=== PATIENT | male | born 1965 | race Caucasian/White ===

== ENCOUNTER → 2016-06-11 | Outpatient (CLI) | payer BC ==
[2016-06-11 11:11] LABS: ALT 49 U/L (21-72); AST 28 U/L (17-59); Cholesterol 160 mg/dL (<200); HDL Cholesterol 47 mg/dL (40-60); Triglycerides 54 mg/dL (<150)
== END | disposition home or self-care (01) ==
LOC: LABWHC1 08:51
PROVIDERS: ATTEND Internal Medicine Interventional Cardiology
DX: E78.2 Mixed hyperlipidemia (principal)
CPT/HCPCS: 36415; 80061; 84450; 84460

== ENCOUNTER → 2016-06-11 | Outpatient (CLI) | payer BC ==
[2016-06-11 10:56] LABS: Basophils % (A) 1 %; CH 32.7; CHCM 33.6; Eosinophils # (A) 0.1 k/uL (0-0.7); Eosinophils % (A) 2 %; HCT 43.8 % (39.0-53.0); HDW 2.58; HGB 14.4 gm/dL (13.0-17.5); Luc # (Auto) 0.09; Luc % (Auto) 2; Lymphocytes % (A) 23 %; MCH 32.2 pg (25.0-35.0); MCHC 32.9 g/dL (31.0-37.0); MCV 97.7 fL (80.0-100.0); Mean Platelet Volume 6.3; Monocytes # (A) 0.3 k/uL (0-1.0); Monocytes % (A) 7 %; Neutrophils # (A) 2.7 k/uL (1.3-7.7); Neutrophils % (A) 66 %; RBC 4.49 m/uL (4.30-5.90); RDW 12.6 % (11.5-15.5); WBC 4.1 k/uL (3.8-10.6); WBC (Perox) 4.29
[2016-06-11 11:16] LABS: Potassium 4.8 mmol/L (3.5-5.1)
== END | disposition home or self-care (01) ==
LOC: LABPAT 08:49
PROVIDERS: ATTEND Orthopaedic Surgery
DX: Z01.818 Encounter for other preprocedural examination (principal); I48.91 Unspecified atrial fibrillation
CPT/HCPCS: 80051; 85025

== ENCOUNTER 2016-06-22 06:39 | Day surgery (SDC) | payer BC ==
[2016-06-14 11:49] VITALS: BMI 29.1
--- NOTE | 2016-06-21 14:54 | HP ---
DATE OF ADMISSION: 06/22/2016 Jairon Davis is a 51-year-old patient seen with progressive right shoulder pain. After having options regarding treatment discussed, he elected to proceed with right shoulder arthroscopy. Consent was obtained. His past medical history is noncontributory. Past surgical history is left shoulder arthroscopy, hand surgery. DAILY MEDICATIONS: None reported. SOCIAL HISTORY: Patient denies tobacco use. Physical evaluation of the right shoulder: Flexion is 150 degrees, abduction is 140 degrees, external rotation is 50 degrees with some discomfort and pain. Tenderness along the anterolateral acromion and rotator cuff insertion. Impingement positive at 90 degrees. Distal neurovascular exam is intact. Right shoulder radiographs revealed a type 2 anterior acromion, acromioclavicular joint osteoarthritis, and cystic changes of the greater tuberosity. An MRI of the right shoulder revealed impingement and rotator cuff tear. IMPRESSION: Right shoulder impingement with rotator cuff tear and acromioclavicular joint osteoarthritis. PLAN: Right shoulder arthroscopy with subacromial decompression, probable arthroscopic rotator cuff repair. Sammy procedure and debridement.
[~2016-06-22 06:39] MED LIST: DEXAMETHASONE SOD PHOSPHATE 10 MG/ML 1 ML VIAL IV ONE; HYDROmorphone 1 MG/ML 1 ML SYRINGE IVP PRN; LACTATED RINGERS 1,000 ML IV SCH; LIDOCAINE 1% 20 ML VIAL (10MG/ML) FOR IV START INTRADERMA PRN; MIDAZOLAM 2 MG/2 ML VIAL IV PRN; ONDANSETRON 4 MG/2 ML VIAL IVP ONE; SCOPOLAMINE 1.5MG/72HR PATCH TRANSDERM ONE; ceFAZolin 2 GM in SODIUM CHLORIDE 0.9% 100 ML IVPB ONE
[2016-06-22] MEDS ORDERED: MIDAZOLAM 2 MG/2 ML VIAL IVP ONE (07:32)
[2016-06-22] MEDS ORDERED: fentaNYL (PF) 50 MCG/ML 2 ML AMP IV ONE (07:35)
[2016-06-22] MEDS ORDERED: fentaNYL (PF) 50 MCG/ML 2 ML AMP ONE (08:03)
[2016-06-22] MEDS ORDERED: KETOROLAC 30 MG/ML 1 ML VIAL ONE (08:03)
[2016-06-22] MEDS ORDERED: ROPIVACAINE 5 MG/ML 30 ML VIAL ONE (08:03)
[2016-06-22] MEDS ORDERED: PROPOFOL 10 MG/ML 20 ML VIAL IV ONE (08:03)
[2016-06-22] MEDS ORDERED: LIDOCAINE 2%-EPI 1:100,000 20 ML VIAL ONE (08:03)
[2016-06-22] MEDS ORDERED: LIDOCAINE 1% INJ 10MG/ML (20 ML MDV) ONE (08:03)
[2016-06-22] MEDS ORDERED: MIDAZOLAM 2 MG/2 ML VIAL ONE (08:03)
[2016-06-22] MEDS ORDERED: SUCCINYLCHOLINE CHLORIDE 100 MG/5 ML SYR IV ONE (08:03)
[2016-06-22] MEDS ORDERED: LACTATED RINGERS 1,000 ML IV ONE (08:30)
[2016-06-22 10:08] VITALS: TEMP 97.3
--- NOTE | 2016-06-22 10:19 | P.OP ---
Date of Procedure: 06/22/16 Preoperative Diagnosis: Right shoulder impingement Postoperative Diagnosis: 1. Right shoulder rotator cuff tear 2. Right shoulder impingement 3. Right shoulder acromioclavicular joint osteoarthritis 4. Right shoulder partial long head biceps tendon tear 5. Right shoulder superficial labral tear Procedure(s) Performed: 1. Right shoulder arthroscopic rotator cuff repair 2. Right shoulder arthroscopic subacromial decompression 3. Right shoulder arthroscopic Sammy procedure 4. Right shoulder arthroscopic biceps tenotomy 5. Right shoulder arthroscopic debridement labral tear Implants: 4-valeris anchors Anesthesia: GETA, regional (Shoulder block) Surgeon: Javy Aldana Forgesmith #1: Kavon Shen Estimated Blood Loss (ml): 10 Pathology: none sent Condition: stable Disposition: PACU Indications for Procedure: 51-year-old patient seen with right shoulder pain. After having treatment options discussed, he elected to proceed with arthroscopy. Operative Findings: See description of procedure Description of Procedure: Patient underwent a shoulder block by department of anesthesia. The patient was then taken to the operative suite. The patient underwent a general anesthetic by the department of anesthesia. The patient was placed into a lateral position and secured. There was appropriate padding of the bony prominence. Right shoulder was then prepped and draped in normal sterile orthopedic fashion. We placed the extremity in 10 pounds of longitudinal traction. A posterior incision was now made for a posterior working portal site. The trocar and cannula were inserted into the glenohumeral joint. Arthroscopy was initiated. Spinal needle was now inserted anteriorly, to ascertain the anterior working portal site. An incision was now made in that area, a trocar was inserted followed by a probe. There was partial tearing long head biceps tendon was some hyperemia present. Superficial tearing of the anterior labrum present. There was grade 1 chondromalacia of the glenoid. The superior, posterior and inferior labrum were found to be intact. I performed an arthroscopic biceps tenotomy. I debrided the superficial labral tear down to stable tissue. The residual labrum was probed and found to be stable. Instruments now removed from glenohumeral joint. Utilizing the posterior working portal site, the trocar and cannula were inserted into the subacromial space. Arthroscopy initiated. I made an incision 2 fingerbreadths lateral to the acromion. I introduced my trocar followed by my ArthroCare ablator. I now began ablating thick subacromial bursal tissue, which exposed the undersurface of the anterior acromion. This was diminished subacromial space. There was a very prominent anterior acromion. A motorized bur was introduced and a subacromial decompression was performed. I also excised some osteophytes off the inferior aspect of the distal clavicle. The AC joint was visualized and noted to be fairly arthritic. Our motorized bur was introduced in the anterior portal site and a Sammy procedure was performed without difficulty, decompressing the AC joint nicely. I turned my attention to the rotator cuff. There was a 2-2.5 cm tear of the distal supraspinatus. I debrided the margins down to stable tissue. I abraded the footprint with a motorized bur. I created an assessory portal site off the lateral acromion. I introduced 2 medial row anchors with 2 sutures each. I now passed all 8 limbs of suture through good bites of rotator cuff tendon. I crisscrossed the sutures and inserted 2 lateral anchors. That compresses tendon along the footprint very nicely. Residual suture limbs were clip. The repair was probed and found to be stable. I injected 1 mL of Allogen into the footprint repair site without difficulty. Instruments now removed from the portal sites. All portal sites were approximated with nylon suture. Sterile dressings were applied followed by a shoulder immobilizer. Kavon BOWSER assisted with the procedure. The patient was awakened, transferred to a bed, and taken to recovery in stable condition.
[2016-06-22 11:26] VITALS: BP 130/79; PULSE 53; RESP 18
== END 2016-06-22 12:34 | disposition home or self-care (01) ==
LOC: OR 06:39
PROVIDERS: ATTEND Orthopaedic Surgery
DX: M75.101 Unspecified rotator cuff tear or rupture of right shoulder, not specified as traumatic (principal); M75.41 Impingement syndrome of right shoulder; M19.011 Primary osteoarthritis, right shoulder; S46.111A Strain of muscle, fascia and tendon of long head of biceps, right arm, initial encounter; S43.401A Unspecified sprain of right shoulder joint, initial encounter; X58.XXXA Exposure to other specified factors, initial encounter; M94.211 Chondromalacia, right shoulder; I42.9 Cardiomyopathy, unspecified; E78.00 Pure hypercholesterolemia, unspecified; E78.5 Hyperlipidemia, unspecified; F17.210 Nicotine dependence, cigarettes, uncomplicated; Z79.82 Long term (current) use of aspirin; Z79.899 Other long term (current) drug therapy
CPT/HCPCS: 64415; 29824; 29827; 29826; C1713 ×2; C1765; J2250; J1100; J0690; J2405; J2001; J3010; J1885; J2795; J0330; J2704

== ENCOUNTER 2016-11-22 18:26 | Emergency (ER) | payer BC ==
[2016-11-22] MEDS ORDERED: SODIUM CHLORIDE 0.9% 1,000 ML IV STA ×2 (18:28)
[2016-11-22] MEDS ORDERED: DIPH,PERTUS(ACELL)TETVAC-LF 0.5 ML VIAL IM ONE (18:28)
[2016-11-22 18:34] VITALS: RESP 18
[2016-11-22 18:39] LABS: Glucose,Whole Blood 110 mg/dL (75-99)
[2016-11-22] MEDS ORDERED: ONDANSETRON 4 MG/2 ML VIAL IVP STA (18:42)
[2016-11-22] MEDS ORDERED: MORPHINE SULFATE 4 MG/ML SYRINGE IVP STA (18:42)
[2016-11-22] MEDS ORDERED: LORazepam 2 MG/ML SYRINGE IV STA (18:42)
[2016-11-22] MEDS ORDERED: diphenhydrAMINE 50 MG/ML 1 ML VIAL IVP STA (18:42)
[2016-11-22] MEDS ORDERED: MORPHINE SULFATE 10 MG/ML SYRINGE IVP STA (18:43)
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
[2016-11-22 18:45] LABS: Basophils # (A) 0.1 k/uL (0-0.2); Basophils % (A) 1 %; CH 33.2; CHCM 35.3; Eosinophils # (A) 0.1 k/uL (0-0.7); Eosinophils % (A) 2 %; HCT 39.2 % (39.0-53.0); HDW 2.57; HGB 14.5 gm/dL (13.0-17.5); Luc # (Auto) 0.13; Luc % (Auto) 2; Lymphocytes # (A) 1.8 k/uL (1.0-4.8); Lymphocytes % (A) 31 %; MCV 94.5 fL (80.0-100.0); Mean Platelet Volume 6.3; Monocytes # (A) 0.4 k/uL (0-1.0); Monocytes % (A) 7 %; Neutrophils # (A) 3.2 k/uL (1.3-7.7); Neutrophils % (A) 57 %; RBC 4.15 m/uL (4.30-5.90); WBC 5.7 k/uL (3.8-10.6); WBC (Perox) 5.08
--- NOTE | 2016-11-22 18:52 | XR ---
EXAMINATION TYPE: XR chest 1V portable DATE OF EXAM: 11/22/2016 COMPARISON: NONE HISTORY: Chest pain TECHNIQUE: Single frontal view of the chest is obtained. FINDINGS: Heart and mediastinum are normal. Lungs are clear. Diaphragm is normal. Bony thorax appear s normal. IMPRESSION: Normal chest
--- NOTE | 2016-11-22 18:53 | XR ---
EXAMINATION TYPE: XR pelvis AP view DATE OF EXAM: 11/22/2016 COMPARISON: NONE HISTORY: Pain TECHNIQUE: Single view FINDINGS: Pelvic ring is intact. Proximal femurs and hip joints appear normal. Sacroiliac joints are normal. IMPRESSION: Normal pelvis
[2016-11-22 18:56] LABS: ALT 34 U/L (21-72); AST 30 U/L (17-59); Alcohol 77 mg/dL; Alkaline Phosphatase 67 U/L (38-126); Amylase 47 U/L (30-110); Anion Gap 15 mmol/L; Blood Urea Nitrogen 23 mg/dL (9-20); Carbon Dioxide 25 mmol/L (22-30); Chloride 105 mmol/L (98-107); Glucose 90 mg/dL (74-99); Non-African American GFR(MDRD) >60 (>60 ml/min/1.73 sqM); Potassium 3.7 mmol/L (3.5-5.1); Sodium 145 mmol/L (137-145); Total Bilirubin 0.9 mg/dL (0.2-1.3); Total Protein 7.2 g/dL (6.3-8.2)
[2016-11-22] MEDS ORDERED: SILVER sulfADIAZINE Cream 400 GM 1 APPLIC APPLIC TOPICAL STA (19:00)
[2016-11-22 19:01] LABS: INR 1.1 (<1.1); Partial Thromboplastin Time 22.4 sec (22.0-30.0); Prothrombin Time 10.6 sec (9.0-12.0)
[2016-11-22 19:08] LABS: Creatine Kinase 247 U/L (55-170)
[2016-11-22 19:21] LABS: Troponin I <0.012 ng/mL (0.000-0.034)
[2016-11-22 19:23] LABS: Creatine Kinase MB 3.4 ng/mL (0.0-2.4)
[2016-11-22 19:38] LABS: Appearance,Urine Clear (Clear); Bilirubin,Urine Negative (Negative); Glucose,Urine (UA) Negative (Negative); Ketones,Urine Negative (Negative); Leukocyte Esterase,Urine Negative (Negative); Nitrite,Urine Negative (Negative); PH, Urine 5.5 (5.0-8.0); Protein,Urine Negative (Negative); Specific Gravity,Urine 1.008 (1.001-1.035); UA Billing (MACRO vs. MICRO) CHEM; Urobilinogen,Urine <2.0 mg/dL (<2.0)
[2016-11-22 19:55] VITALS: BP 128/87; PULSE 60; TEMP 98.2
== END 2016-11-22 19:45 | disposition other institution (70) ==
LOC: EC 18:26
DX: T21.22XA Burn of second degree of abdominal wall, initial encounter (principal); T24.211A Burn of second degree of right thigh, initial encounter; T24.212A Burn of second degree of left thigh, initial encounter; T22.211A Burn of second degree of right forearm, initial encounter; T22.212A Burn of second degree of left forearm, initial encounter; T24.231A Burn of second degree of right lower leg, initial encounter; T24.232A Burn of second degree of left lower leg, initial encounter; T31.20 Burns involving 20-29% of body surface with 0% to 9% third degree burns; E78.5 Hyperlipidemia, unspecified; F17.200 Nicotine dependence, unspecified, uncomplicated; Z23 Encounter for immunization; Z79.82 Long term (current) use of aspirin; Z79.899 Other long term (current) drug therapy; X12.XXXA Contact with other hot fluids, initial encounter; Y93.G3 Activity, cooking and baking
CPT/HCPCS: 36415; 93005; 86900; 86901; 80053; 82150; 82550; 82553; 83605; 83690; 84484; 85025; 85610; 85730; 86850; 81003; 80306; 80320; 71010; 72170; 90715; 99291; 16020; 96374; 96375 ×3; 96361; 90471; J2060; J1200; J2270; J2405